=== PATIENT | male | born 1970 | race Caucasian/White ===

== ENCOUNTER → 2017-08-16 | Outpatient (CLI) | payer OTHER ==
--- NOTE | 2017-08-16 15:59 | DIAGNOSTIC IMAGING REPORT ---
L-SPINE MIN 4 VIEWS ROUTINE HISTORY: Pain M54.5 Lumbar pain with radiation down right [id number] COMPARISON: None. FINDINGS: There is no fracture. No subluxation. Considerable degenerative disc change from L4 through S1. Vacuum discs are present at L4-L5 and L5-S1. IMPRESSION: Considerable degenerative disc change from L4 through S1. The above report was generated using voice recognition software. It may contain grammatical, syntax or spelling errors. Electronically signed by: Gabriel Hanson M.D. 08/16/2017 3:58 PM Dictated Date/Time: 08/16/2017 3:57 PM
== END | disposition home or self-care (01) ==
LOC: C.RAD 15:18
PROVIDERS: ATTEND Family Medicine
DX: M54.5 Low back pain (principal)

== ENCOUNTER → 2017-08-28 | Outpatient (CLI) | payer OTHER ==
--- NOTE | 2017-08-28 10:34 | DIAGNOSTIC IMAGING REPORT ---
LUMBAR SPINE W/O CONTRAST HISTORY: Pain. Radiculopathy. M54.5 Lumbar pain with radiation down right [id number] TECHNIQUE: Multiplanar multisequence MRI of the lumbar spine was performed without the use of contrast. COMPARISON: None. FINDINGS: For the purpose of the report the L5-S1 disc space will be located on axial image [id number]. Considerable degenerative disc change L4-L5 and L5-S1. Posterior extra dural defects at both levels. Remainder of the lumbar spine appears unremarkable in terms of signal characteristics. L1-L2: No significant central canal or neural foraminal narrowing. L2-L3: No significant central canal or neural foraminal narrowing. L3-L4: No significant central canal or neural foraminal narrowing. L4-L5: Mild broad-based disc herniation combine with posterior osteophytic reaction. Moderate hypertrophic changes of posterior facets creating mild multifactorial narrowing of the spinal canal. Mild narrowing of the neuroforamina bilaterally. L5-S1: Right central disc herniation creating significant impact upon the right anterior aspect of thecal sac. Moderate narrowing of the neuroforamina bilaterally. Moderate hypertrophic change posterior facets. IMPRESSION: 1. Considerable degenerative disc change from L4 through S1. 2. Prominent right central disc herniation L5-S1 creating moderate impact upon the anterior thecal sac and right S1 nerve root. 3. Mild broad-based posterior extradural defect at L4-L5 comprised of bulging disc material and posterior osteophytes. 4. The findings at L4-L5 combined with hypertrophic changes of the posterior elements create mild multifactorial narrowing of the spinal canal. The above report was generated using voice recognition software. It may contain grammatical, syntax or spelling errors. Electronically signed by: Gabriel Hanson M.D. 08/28/2017 10:32 AM Dictated Date/Time: 08/28/2017 10:28 AM
== END | disposition home or self-care (01) ==
LOC: C.MRI 09:39
PROVIDERS: ATTEND Family Medicine
DX: M51.27 Other intervertebral disc displacement, lumbosacral region (principal)